=== PATIENT | male | born 1940 | race Caucasian/White ===

== ENCOUNTER 2021-10-09 21:05 | Emergency (ER) | payer MEDICARE, BC ==
[2021-10-09] MEDS ORDERED: LORazepam 0.5 MG Tab PO ONE (21:44)
[2021-10-09 22:47] LABS: ANION GAP 15.5 mmol/L (5-15)
== END 2021-10-09 23:05 | disposition home or self-care (01) ==
LOC: KA.ED 21:05
DX: I10 Essential (primary) hypertension (principal); Z79.899 Other long term (current) drug therapy
CPT/HCPCS: 36415; 80048; 84484; 85025; 99283; 99283-25; A9270-GY

== ENCOUNTER 2023-07-21 14:37 | Observation (INO) | payer MEDICARE, BC ==
[2023-07-21] MEDS ORDERED: Sodium Chloride 0.9% 10 ML Syringe FLUSH PRN (14:56)
[2023-07-21 15:02] LABS: BASOPHILS ABSOLUTE AUTO 0.03 10^3/uL (0.00-0.10); BASOPHILS PERCENT AUTO 0.3 % (0.0-1.0); EOSINOPHILS ABSOLUTE AUTO 0.16 10^3/uL (0.10-0.30); EOSINOPHILS PERCENT AUTO 1.8 % (1.0-3.0); HEMATOCRIT 30.1 % (40.0-52.0); HEMOGLOBIN 10.6 g/dL (13.0-17.0); IMMATURE GRAN ABSOLUTE AUTO 0.01 10^3/uL (0.00-0.50); IMMATURE GRAN PERCENT AUTO 0.1 % (0.0-5.0); LYMPHOCYTES ABSOLUTE AUTO 1.35 10^3/uL (1.00-4.00); LYMPHOCYTES PERCENT AUTO 15.2 % (20.0-40.0); MEAN CORPUSCULAR HEMOGLOBIN 32.5 pg (27.0-31.0); MEAN CORPUSCULAR HGB CONC 35.2 g/dL (32.0-36.0); MEAN CORPUSCULAR VOLUME 92.3 fL (82.0-92.0); MEAN PLATELET VOLUME 9.5 fL (7.4-10.4); MONOCYTES ABSOLUTE AUTO 0.84 10^3/uL (0.10-0.80); MONOCYTES PERCENT AUTO 9.5 % (2.0-8.0); NEUTROPHILS ABSOLUTE AUTO 6.49 10^3/uL (2.50-7.00); NEUTROPHILS PERCENT AUTO 73.1 % (50.0-70.0); PLATELET COUNT,PLT 181 10^3/uL (150-400); RED BLOOD CELL COUNT 3.26 10^6/uL (4.50-6.00); RED CELL DISTRIBUTION WIDTH 12.2 % (11.5-14.5); WHITE BLOOD CELL COUNT,WBC 8.88 10^3/uL (5.00-10.00)
[2023-07-21 15:21] LABS: ALANINE AMINOTRANSFERASE,ALT 25 U/L (14-63); ALBUMIN 3.45 g/dL (3.40-5.00); ALKALINE PHOSPHATASE 59 U/L (46-116); ANION GAP 11.7 mmol/L (5-15); ASPARTATE AMNIOTRANSFERASE,AST 29 U/L (15-37); BILIRUBIN TOTAL 0.4 mg/dL (0.2-1.0); BLOOD UREA NITROGEN,BUN 14 mg/dL (7-18); CALCIUM 8.3 mg/dL (8.7-10.3); CARBON DIOXIDE,CO2 27.6 mmol/L (21.0-32.0); CHLORIDE,CL 93 mmol/L (98-107); CREATININE 1.21 mg/dL (0.51-1.17); GLUCOSE RANDOM 110 mg/dL (70-140); POTASSIUM,K 4.3 mmol/L (3.5-5.1); SODIUM,NA 128 mmol/L (136-145)
[2023-07-21 15:23] LABS: ESTIMATED GFR 59 mL/min (>=60)
[2023-07-21] MEDS: Aspirin 81 MG Tab.Chew PO ONE ×2 (16:03→17:44)
[2023-07-21] MEDS ORDERED: Acetaminophen 325 MG Tab PO PRN (18:35)
[2023-07-21] MEDS ORDERED: Non-Formulary Medication 1 Each (Ipratropium Bromide [Ipratropium Bromide] 30 ML Spray) NAS PRN (18:35)
[2023-07-21] MEDS ORDERED: amLODIPine 5 MG Tab PO SCH (21:00)
[2023-07-21] MEDS ORDERED: atorvaSTATin 10 MG Tab PO SCH (21:00)
[2023-07-21] MEDS ORDERED: Losartan 50 MG Tab PO SCH (21:00)
[2023-07-21] MEDS ORDERED: MAGNESIUM CITRATE 100 MG PO SCH (21:00)
[2023-07-21] MEDS ORDERED: traZODone 50 MG Tab PO SCH (21:00)
[2023-07-21] MEDS ORDERED: Tamsulosin 0.4 MG Cap.ER PO SCH (21:00)
[2023-07-22] MEDS ORDERED: Menthol Lozenge PO PRN (05:35)
[2023-07-22] MEDS ORDERED: Aspirin 81 MG Tab.EC PO SCH (09:00)
== END 2023-07-22 13:30 | disposition home or self-care (01) ==
LOC: KA.ED 14:37 → KA.MS 15:59
PROVIDERS: ADMIT Internal Medicine; ATTEND Internal Medicine
DX: R07.9 Chest pain, unspecified (principal); I10 Essential (primary) hypertension; E78.5 Hyperlipidemia, unspecified; E78.00 Pure hypercholesterolemia, unspecified; N40.0 Benign prostatic hyperplasia without lower urinary tract symptoms; Z95.2 Presence of prosthetic heart valve; Z88.8 Allergy status to other drugs, medicaments and biological substances; Z79.899 Other long term (current) drug therapy; Z79.82 Long term (current) use of aspirin; Z20.822 Contact with and (suspected) exposure to COVID-19
CPT/HCPCS: 36415; 71045; 80053; 84484; 85025; 93005; 93010; 99284; A9270-GY; G0378; Q3014; U0002